=== PATIENT | female | born 1990 | race Caucasian/White ===

== ENCOUNTER 2021-03-21 08:18 | Inpatient (IN) | payer MEDICAID ==
[~2021-03-21] VITALS: Ht 177.8 cm; Wt 98.6 kg
[2021-03-21] MEDS ORDERED: ONDANSETRON 2MG/ML, 2ML IVPush PRN (20:30)
[2021-03-21] MEDS ORDERED: TERBUTALINE 1 MG/ML, 1ML SQ PRN (20:30)
[2021-03-21] MEDS ORDERED: OXYTOCIN 30U/ 0.9% NaCL 500ML 500 ML IV PRN (20:30)
[2021-03-21] MEDS ORDERED: TERBUTALINE 1 MG/ML, 1ML IVPush PRN (20:30)
[2021-03-21] MEDS ORDERED: FENTANYL PF 100 MCG/2ML IVPush PRN (20:30)
[2021-03-21] MEDS ORDERED: OXYTOCIN 30U/ 0.9% NaCL 500ML 500 ML IV ONE (20:30)
[2021-03-21] MEDS ORDERED: D5%-LACTATED RINGERS 1,000 ML IV SCH (20:30)
[2021-03-21] MEDS ORDERED: CALCIUM CARBONATE 500 MG TAB.CHEW PO PRN (20:30)
[2021-03-21] MEDS ORDERED: FENTANYL PF 100 MCG/2ML IV PRN (20:30)
[2021-03-21] MEDS ORDERED: SODIUM CITRATE/CITRIC ACID 30 ML UDC PO PRN (20:30)
[2021-03-21 20:32] VITALS: BP 103/74
[2021-03-21] MEDS ORDERED: PLEASE ENTER HEIGHT AND WEIGHT MC SCH (21:00)
[2021-03-21 21:03] LABS: BASOPHILS % (AUTO) 1 % (0-1); EOSINOPHILS % (AUTO) 1 % (1-7); LYMPHOCYTES % (AUTO) 20 % (22-44); MEAN CORPUSCULAR HGB CONC 34.3 g/dL (32.4-35.8); MEAN PLATELET VOLUME 10.3 fL (7.4-10.4); MONOCYTES % (AUTO) 6 % (2-9); NEUTROPHILS % (AUTO) 73 % (42-75); PLATELET COUNT 207 x10^3/uL (130-400); RED BLOOD COUNT 4.35 x10^6/uL (3.82-5.3); RED CELL DISTRIBUTION WIDTH 13.3 % (9.6-15.2)
[2021-03-22] MEDS: LACTATED RINGERS 1,000 ML IV SCH ×3 (00:35→08:22)
[2021-03-22 01:17] VITALS: BP 115/66
[2021-03-22] MEDS ORDERED: NEWBORN KIT ONE (01:49)
[2021-03-22 07:15] VITALS: BP 122/76
[2021-03-22] MEDS ORDERED: ALBU0.63 IH (07:24)
[2021-03-22] MEDS ORDERED: CHOL10003 PO (07:24)
[2021-03-22] MEDS ORDERED: PREN1TAB60 PO (07:24)
[2021-03-22] MEDS ORDERED: BUPIVACAINE 0.25% ONE (07:33)
[2021-03-22] MEDS ORDERED: FENTANYL/BUPIV./NS/PF 250 ML EPIDCONT ONE (07:33)
[2021-03-22] MEDS ORDERED: EPHEDRINE 50 MG/ML, 1ML IVPush PRN (08:30)
[2021-03-22] MEDS ORDERED: LACTATED RINGERS 1,000 ML IV SCH (08:30)
[2021-03-22] MEDS ORDERED: ONDANSETRON 2MG/ML, 2ML IVPush PRN (08:30)
[2021-03-22] MEDS ORDERED: FENTANYL/BUPIV./NS/PF 250 ML EPIDCONT SCH (08:30)
[2021-03-22] MEDS ORDERED: NALOXONE 0.4 MG/ML, 1ML IVPush PRN (08:30)
[2021-03-22] MEDS ORDERED: DIPHENHYDRAMINE 50 MG/ML, 1ML IVPush PRN (08:30)
[2021-03-22] MEDS ORDERED: LACTATED RINGERS 1,000 ML IVBOLUS PRN (08:30)
[2021-03-22] MEDS ORDERED: LIDOCAINE/MPF 2%-EPI 1:200K, 20 ML ONE (17:11)
[2021-03-22] MEDS ORDERED: MISOPROSTOL 200 MCG TABLET ONE (19:24)
[2021-03-22] MEDS ORDERED: OXYTOCIN 30U/ 0.9% NaCL 500ML 500 ML IV PRN (20:30)
[2021-03-23] MEDS ORDERED: OXYcodone/APAP 5/325MG TABLET ONE (00:01)
[2021-03-23] MEDS ORDERED: IBUPROFEN 600 MG TABLET ONE (00:01)
[2021-03-23] MEDS: IBUPROFEN 600 MG TABLET PO PRN ×3 (00:20→20:59)
[2021-03-23] MEDS: OXYcodone/APAP 5/325MG TABLET PO PRN ×5 (00:20→21:00)
[2021-03-23] MEDS: OXYTOCIN 30U/ 0.9% NaCL 500ML 500 ML IV SCH ×3 (00:55→21:00)
[2021-03-23] MEDS ORDERED: SIMETHICONE 80 MG CHEW TAB PO PRN (01:00)
[2021-03-23 02:05] VITALS: BP 110/67
[2021-03-23 06:15] VITALS: BP 105/69
[2021-03-23 07:35] VITALS: BP 108/77
[2021-03-23 07:39] LABS: BASOPHILS % (AUTO) 0 % (0-1); EOSINOPHILS % (AUTO) 0 % (1-7); LYMPHOCYTES % (AUTO) 6 % (22-44); MEAN CORPUSCULAR HEMOGLOBIN 30.5 pg (27.0-34.8); MEAN CORPUSCULAR HGB CONC 34.9 g/dL (32.4-35.8); MEAN PLATELET VOLUME 10.7 fL (7.4-10.4); MONOCYTES % (AUTO) 6 % (2-9); NEUTROPHILS % (AUTO) 89 % (42-75); PLATELET COUNT 184 x10^3/uL (130-400); RED BLOOD COUNT 3.82 x10^6/uL (3.82-5.3); RED CELL DISTRIBUTION WIDTH 13.4 % (9.6-15.2)
[2021-03-23 11:55] VITALS: BP 116/76
[2021-03-23] MEDS: DOCUSATE 100 MG CAPSULE PO PRN ×2 (13:51→20:59)
[2021-03-23] MEDS: PRENATAL VIT/IRON/FA 1 EACH TABLET PO SCH (13:51)
[2021-03-23 16:22] VITALS: BP 109/73
[2021-03-23 20:55] VITALS: BP 103/67
[2021-03-24 00:09] VITALS: BP 95/56
[2021-03-24] MEDS: OXYcodone/APAP 5/325MG TABLET PO PRN (02:33)
[2021-03-24] MEDS: OXYTOCIN 30U/ 0.9% NaCL 500ML 500 ML IV SCH (07:00)
[2021-03-24] MEDS: DOCUSATE 100 MG CAPSULE PO PRN (07:38)
[2021-03-24] MEDS: PRENATAL VIT/IRON/FA 1 EACH TABLET PO SCH (07:38)
[2021-03-24] MEDS: IBUPROFEN 600 MG TABLET PO PRN (07:38)
[2021-03-24 07:56] VITALS: BP 110/72
[2021-03-24] MEDS ORDERED: IBUP-1222 PO (10:31)
== END 2021-03-24 11:10 | disposition home or self-care (01) | DRG 807 ==
LOC: 2NE 20:06 → EDIP 20:08 → LDIP 20:12 → 2NW 03-23 01:51
PROVIDERS: ADMIT Student in an Organized Health Care Education/Training Program; ATTEND Student in an Organized Health Care Education/Training Program
PROC: 10E0XZZ Delivery of Products of Conception, External Approach (ICD-10-PCS; principal; 2021-03-23)
PROC: 0KQM0ZZ Repair Perineum Muscle, Open Approach (ICD-10-PCS; 2021-03-23)
PROC: 3E0R3BZ Introduction of Anesthetic Agent into Spinal Canal, Percutaneous Approach (ICD-10-PCS; 2021-03-23)
PROC: 00HU33Z Insertion of Infusion Device into Spinal Canal, Percutaneous Approach (ICD-10-PCS; 2021-03-23)
PROC: 10H07YZ Insertion of Other Device into Products of Conception, Via Natural or Artificial Opening (ICD-10-PCS; 2021-03-23)
DX: O99.52 Diseases of the respiratory system complicating childbirth (principal); Z37.0 Single live birth; O70.1 Second degree perineal laceration during delivery; J45.30 Mild persistent asthma, uncomplicated; Z3A.39 39 weeks gestation of pregnancy; Z80.3 Family history of malignant neoplasm of breast; O99.284 Endocrine, nutritional and metabolic diseases complicating childbirth; E55.9 Vitamin D deficiency, unspecified; Z20.822 Contact with and (suspected) exposure to COVID-19
CPT/HCPCS: 36415; 85025; 86592; 86850; 86900; 87635; G0378; J2590; J3010; J7120

== ENCOUNTER 2021-03-21 19:46 | Emergency (ER) | payer MEDICAID ==
[2021-03-22] MEDS ORDERED: ALBU0.63 IH (07:24)
[2021-03-22] MEDS ORDERED: CHOL10003 PO (07:24)
[2021-03-22] MEDS ORDERED: PREN1TAB60 PO (07:24)
== END 2021-03-21 20:06 | disposition still patient (30) ==
LOC: ED 19:50
DX: R68.89 Other general symptoms and signs (principal); Z53.21 Procedure and treatment not carried out due to patient leaving prior to being seen by health care provider